=== PATIENT | male | born 1970 | race Caucasian/White ===

== ENCOUNTER 2017-01-13 19:50 | Emergency (ER) | payer OTHER ==
[~2017-01-13 19:50] MED LIST: CLEOCIN300 MG PO; CLINDAMYCIN HCL75 MG PO; IBUPROFEN400 MG PO
--- NOTE | 2017-01-13 21:29 | DIAGNOSTIC IMAGING REPORT ---
PROCEDURE: XR CHEST 1 VIEW INDICATION: CONGESTION TECHNIQUE: Single view chest. 2030 hours COMPARISON: 09/25/2015 FINDINGS: The cardiopulmonary contour and central vasculature are stable, within normal limits. The lungs are clear without focal consolidation, pleural effusion or pneumothorax. The osseous structures are intact. IMPRESSION: 1. No evidence of acute cardiopulmonary disease.
--- NOTE | 2017-01-13 22:55 | ED ORDER SUMMARY ---
..... Patient: STEPHANIE CARVALHO OrderSheet [facility] VisitID: [id number] [place] [address] 46y, M Registration Date/Time: 01/13/2017 ORDER SHEET Weight: 74.8 kg (stated) Allergies: No Known Drug Allergy GENERAL ORDERS: Chest 1V Urgent (20:17 01/13/2017 DDean R.N. per protocol) (Ack 20:22 CHagerty ER Vice President Of Recruiting) (20:31 RFay) Information Clerk Brokerage (Continuous) (feels short of breath) (20:17 01/13/2017 DDean R.N. per protocol) (20:17 DDean R.N.) Cardiac Panel Stat (20:17 01/13/2017 DDean R.N. per protocol) (Ack 20:22 CHagerty ER Vice President Of Recruiting) (20:24 NHouse ER Tech1) UA-Culture if indicated Urgent (20:17 01/13/2017 DDean R.N. per protocol) (Ack 20:22 CHagerty ER Vice President Of Recruiting) (21:43 HBivens A.R.N.P.) (Cancelled: Other21:44 HBivens A.R.N.P.) Oxygen (2 L/min) (NC) (20:17 01/13/2017 DDean R.N. per protocol) (20:17 DDean R.N.) Pulse oximeter (20:17 01/13/2017 DDean R.N. per protocol) (20:17 DDean R.N.) EKG - ER Stat (20:17 01/13/2017 DDean R.N. per protocol) (20:19 NHouse ER Tech1) CPK Urgent (21:43 01/13/2017 HBivens A.R.N.P.) (Ack 21:49 CHagerty ER Vice President Of Recruiting) (22:11 ALawrence ER Tech1) Troponin-I Urgent (21:43 01/13/2017 HBivens A.R.N.P.) (Ack 21:49 CHagerty ER Vice President Of Recruiting) (22:11 ALawrence ER Tech1) MEDICATION ORDERS: Aspirin PO 325 mg (NOW) (20:24 01/13/2017 HBivens A.R.N.P.) (20:39 DDean R.N.) IV FLUIDS: IV Saline Lock (20:17 01/13/2017 DDean R.N. per protocol) (20:18 DDean R.N.) ORDER SHEET NOTES: [Electronically signed by Marino Rivera R.N. (23:32 01/13/2017)] [Electronically signed by Mariah Amaya A.R.N.P. (13:08 01/14/2017)] [Electronically locked/signed by Marino Rivera R.N. (23:32 01/13/2017)]
--- NOTE | 2017-01-13 22:55 | ED CLINICAL REPORT ---
Clinical Report - Physicians/Mid Levels [facility] [address] [place] [address] 01/13/2017 19:50 Patient: STEPHANIE CARVALHO Time Seen: 20:14; initial patient contact, initial documentation, patient care assumed. Arrived- By private vehicle. Historian- patient. HISTORY OF PRESENT ILLNESS Chief Complaint: UPPER EXTREMITY PAIN. This started about 1 weeks ago and is still present. Severity is described as being moderate in degree. The quality is noted to be "pain". It is described as radiating to the left neck. Modifying factors. Not worsened by anything. Not made better by anything. Symptoms located in the area of the left arm. The patient has had difficulty breathing and chest pain but not had redness. No swelling, sensory loss, motor loss or repetitive hand use at work. Patient denies an injury. Similar symptoms previously: None. Recent medical care: Not recently seen/assessed. REVIEW OF SYSTEMS No fever or cough. All systems otherwise negative, except as recorded above. PAST HISTORY See nurses notes. PROBLEMS: Cellulitis. Chest Pain. Gastroesophageal Reflux Disease. Anxiety Reaction. Gastroesophageal Reflux. --20:01 Jhony Sotelo R.N. Hx of "liver problems". --20:07 Danna Paige R.N. ADDITIONAL SURGERIES: no known surgeries. SOCIAL HISTORY Heavy tobacco smoker. History of heavy drug use: methamphetamines. Recently used drugs days ago. Is not under influence in ED. No alcohol use. Is a local resident. FAMILY HISTORY History of heart disease (chf and cousin at age 45 with mi). ADDITIONAL NOTES The nursing notes have been reviewed with agreement regarding the chief complaint, HPI, ROS, PMH and patient medications and allergies. PHYSICAL EXAM Vital Signs: 01/13/2017 19:52 BP: 141/96. HR: 98. RR: 18. O2 saturation: 100%. Temp: 98.2 F. Pain level now: 5/10. Hypertensive. Heart rate normal. Respiratory rate normal. Temperature normal. Oxygen saturation normal. Appearance: Alert. Oriented X3. No acute distress. Eyes: Pupils equal, round and reactive to light. Eyes normal inspection. Neck: Normal inspection. Neck supple. CVS: Normal heart rate and rhythm. Heart sounds normal. Respiratory: No respiratory distress. Breath sounds normal. Abdomen: Soft and nontender. No organomegaly. Back: Normal inspection. No tenderness. ROM normal. Skin: Skin intact. Skin warm and dry. Normal skin color. Normal skin turgor. Extremities: Upper extremities normal to inspection. Upper extremities exhibit normal ROM. Upper extremities nontender. No upper extremity edema. Extremities otherwise negative. Neuro: Oriented X 3. No motor deficit. No sensory deficit. LABS, X-RAYS, AND EKG EKG: EKG time: (2003). No acute process. No acute ischemia. Normal EKG. Rate: 101. Regular narrow-complex tachycardia (ventricular rate 101). Sinus tachycardia. Normal EKG. The study has been interpreted contemporaneously. The EKG appears to be a good tracing. Interpretation time: 2004. Chest X-ray: Normal Chest X-Ray. (IMPRESSION: 1. No evidence of acute cardiopulmonary disease. Electronically Final signed by:Shauna Riley MD 01/13/2017 9:30:02 PM). The X-rays were interpreted by the radiologist and contemporaneously by me. Laboratory Tests: CBC w Diff: (LION: 01/13/2017 19:58) ( MsgRcvd 01/13/2017 20:33) Final results Test Result Flag Units (Reference) WHITE BLOOD COUNT 10.8 K/uL (4.5-11.5) RED BLOOD COUNT 4.55 M/uL (4.50-5.90) HEMOGLOBIN 14.4 gm/dL (13.5-17.5) HEMATOCRIT 42.7 % (41.0-53.0) MEAN CELL VOLUME 94 fL (80-100) MEAN CORPUSCULAR HGB 32 pg (26-34) MEAN CORPUSCULAR HGB CONC 34 g/dL (31-37) RED CELL DISTRIBUTION WIDTH 13.5 % (11.6-14.8) PLATELET COUNT 299 K/uL (150-400) NEUTROPHIL % 61.3 % (50-75) LYMPH % 25.1 % (25-40) MONO % 6.9 % (3-14) EOSINOPHIL % 6.0 H % (0-4) BASOPHIL % 0.7 % (0-2) CPK: (LION: 01/13/2017 21:00) ( [facility] 01/13/2017 22:38) Final results Test Result Flag Units (Reference) CPK 416 H U/L (24-260) TROPONIN I <0.05 ng/mL (0.00-1.5) TROPONIN REFERENCE RANGE:<0.1 NEGATIVE0.1-1.5 INDETERMINANT>1.5 POSITIVE %CKMB 1.0 % (0.0-4.0) CHEM 13 PANEL: (LION: 01/13/2017 20:17) ( [facility] 01/13/2017 21:33) Final results Test Result Flag Units (Reference) GLUCOSE 85 mg/dL (70-110) BUN 22 H mg/dL (7-18) CREATININE 1.0 mg/dL (0.6-1.3) Estimated GFR >60 mL/min Estimated GFR- >60 mL/min Note: Persistent reduction over 3 months in eGFR<60 mL/min/1.73 m2 defines CKD. Patients with eGFR values>=60 mL/min/1.73 m2 may also have CKD if evidence ofpersistent proteinuria. Additional information may be foundat www.kidney.org. SODIUM 142 mmol/L (136-145) POTASSIUM 3.9 mmol/L (3.5-5.1) CHLORIDE 106 mmol/L (98-107) CARBON DIOXIDE 26 mmol/L (21-32) CALCIUM 8.6 mg/dL (8.5-10.1) TOTAL PROTEIN 7.2 g/dL (6.4-8.2) ALBUMIN 3.7 g/dL (3.3-5.0) BILIRUBIN, TOTAL 0.3 mg/dL (0.0-1.0) ALKALINE PHOSPHATASE 111 U/L (46-116) AST (SGOT) 26 U/L (15-37) ALT (SGPT) 34 U/L (12-78) MAGNESIUM 1.8 mg/dL (1.8-2.4) CPK 453 H U/L (24-260) TROPONIN I <0.05 ng/mL (0.00-1.5) TROPONIN REFERENCE RANGE:<0.1 NEGATIVE0.1-1.5 INDETERMINANT>1.5 POSITIVE CK-MB 5.1 H ng/mL (0.5-3.2) %CKMB 1.1 % (0.0-4.0) . PROGRESS AND PROCEDURES Course of Care: 2249. pt's case and labs discussed with Dr Monreal, whom agreed with my dc plan 2254. importance of f/u tomorrow with pcp discussed. Patient and family counseled in person regarding the patient's stable condition, test results and diagnosis. 22:55. Differential Diagnosis: I considered muscle strain, costochondritis, myositis, pleurisy, myocardial infarction, intermediate coronary syndrome, unstable angina, angina, aortic dissection, mitral valve prolapse, pericarditis, palpitations, pulmonary embolism, pneumonia, gastroesophageal reflux disease, esophagitis and esophageal spasm as a possible cause of chest pain in this patient. This is a partial list of diagnoses considered. (substance abuse). Above considerations are based on history, physical exam, laboratory data, X-Ray data and EKG. Differential diagnosis was discussed with patient. Disposition: Discharged home in good and improved condition (22:55). Condition: good and stable. CLINICAL IMPRESSION Atypical chest pain .12 lead EKG performed. Chronic substance abuse- methamphetamines with intoxication. INSTRUCTIONS Warnings: Further evaluation is necessary in order to conduct further tests and assess the possibility of serious illness. It is very important to follow up with a physician. GENERAL WARNINGS: Return or contact your physician immediately if your condition worsens or changes unexpectedly, if not improving as expected, or if other problems arise. Specifically return if problem worsens. Follow-up: Follow up with your doctor tomorrow even if well. Call for an appointment. Summary of care provided to patient. Understanding of the discharge instructions verbalized by patient. (Electronically signed by Mariah Amaya A.R.N.P. 01/14/2017 13:08)
--- NOTE | 2017-01-13 22:55 | ED NURSING NOTES ---
Clinical Report - Nurses [facility] [address] [place] [address] 01/13/2017 19:50 Patient: STEPHANIE CARVALHO TRIAGE Triage time 1951. Acuity: LEVEL 3. Chief Complaint: (Pt states he has left arm pain, and neck pain x 1 week. Also states he doesn't feel like he is breathing well, but denies chest pain). 19:52. DIEGO COMA SCORE: [place] Coma Scale: 15- eyes open spontaneously (4); best verbal response- oriented x 4 (5); best motor response- obeys commands (6). --20:03 Dakota Sotelo R.N. 19:52 01/13/17. BP: 141/96. HR: 98. RR: 18. O2 saturation: 100% on room air. Temp: 98.2 F. Pain level now: 5/10. Additional comments: LEFT, PAIN in neck is 5/10 BP 128/84 on right arm . --20:03 Dakota Sotelo R.N. Weight: 74.8 kg stated. Height/Length: 67 inches Per Patient. BMI: 25.9. --19:59 Dakota Sotelo R.N. Medications Clindamycin HCl Oral. Ibuprofen Oral. --23:31 Marino Rivera R.N. Allergies No Known Drug Allergy. --23:31 Marino Rivera R.N. History Arrived by private vehicle. Historian: patient. Accompanied by sister. Primary physician (bucky). ( denies any speciific changes, states has had same symptoms x 1 week "Just tired of putting up with this-- and worried about heart since family has hx"). SURGERY HX: No history of previous surgery. SOCIAL HX: Heavy tobacco smoker (cigarette)- 1 pack per day. History of drug use: methamphetamines. (last used 2 days ago). No alcohol use. --20:03 Dakota Sotelo R.N. PROBLEMS: Cellulitis. Chest Pain. Gastroesophageal Reflux Disease. Anxiety Reaction. Gastroesophageal Reflux. --20:01 Dakota Sotelo R.N. Hx of "liver problems". --20:07 Danna Paige R.N. ADDITIONAL SURGERIES: no known surgeries. Interventions ID band on patient. To treatment room. --20:03 Dakota Sotelo R.N. PHYSICAL ASSESSMENT 19:52. Ambulatory to room. Patient gowned. GENERAL / NEURO / PSYCH: Alert. Oriented X 4. Appears anxious. HEENT: Mucous membranes are pink. RESPIRATORY: Mild respiratory distress. Chest wall tenderness. CVS: Capillary refill less than 2 seconds. GI / : Abdomen soft. SKIN: Skin is warm and dry. --20:06 Danna Paige R.N. NURSING PROGRESS NOTES 19:52. Oxygen administered. patient monitor placed on patient. Patient gowned. Head of bed elevated. Reassurance given. Patient identifiers checked. Call light placed in reach. Side rails up. Bed placed in lowest position. Patient ready for evaluation- chart flagged. --20:04 Danna Paige R.N. 19:55 01/13/2017 Site #1 started via IV in the right antecubital space with an 18g angiocath, with aseptic technique and good blood return; one attempt. Blood drawn: rainbow set. Labeled in the presence of the patient and sent to the lab. Saline lock flushed with 10 mL saline. --20:05 Danna Paige R.N. 20:00 01/13/17. BP: 134/94. HR: 101. RR: 20. O2 saturation: 99%. Temp: deferred. Pain level now: 4/10. Additional comments: sister at bedside. --20:08 Danna Paige R.N. EKG time: (2003). EKG was ordered, performed by a tech and shown to the ED physician. --20:12 Solange Lee ER Tech1 20:39 01/13/2017 Aspirin PO Tablets 324 mg given. Allergies verified and confirmed 5 rights. --20:39 Danna Paige R.N. 20:42 01/13/17. BP: 128/86. HR: 104. RR: 18. O2 saturation: 100%. Temp: deferred. Pain level now: 4/10. Additional comments: head and neck pain , family at bedside --waiting on lab results. --20:44 Danna Paige R.N. 21:15 01/13/17. BP: 124/83. HR: 104. RR: 20. O2 saturation: 98% on room air. Temp: deferred. Pain level now: cannot qualify. Additional comments: pt sleeping. --21:15 Danna Paige R.N. 21:55. Blood samples drawn. (repeat triponin and CPK drawn from IV site after 5cc wasted. Pt dozing when not stimulated, family at bedside.). --22:01 Danna Paige R.N. 22:20 01/13/17. BP: 122/70. HR: 100. RR: 18. O2 saturation: 99%. Temp: deferred. Pain level now: cannot qualify. Additional comments: sleeping. --22:29 Danna Paige R.N. 22:30 01/13/17. Care transferred and report given (dakota KASPER). --22:30 Danna Paige R.N. ( report from [facility]). --22:35 Raymond Cornell R.N. DISPOSITION / DISCHARGE Condition at departure: stable. FALL RISK ASSESSMENT: Fall risk assessment completed. No fall risk identified. --22:59 Dakota Sotelo R.N. 22:57 01/13/17. BP: 124/76. HR: 94. RR: 15. O2 saturation: 98%. Pain level now: 0/10. --22:59 Dakota Sotelo R.N. Departure time: 2316. The goals identified in the patient's plan of care were met. No learning barriers present. Discharge instructions provided and reviewed with the patient. Reviewed referral to a primary care physician for followup (Gave [facility] flyer for f/u. Stephanie verbalizes importance of f/u and establishing PCP.). Reviewed need for increased fluid intake. Activity restrictions (rest) reviewed. Patient verbalized understanding. Written instructions provided in Maldivian. ( Stephanie verbalizes understanding of all d/c instructions including need to f/u with PCP. He verbalizes desire to stop meth and verbalized the PCP can help begin that journey. Encouraged him to increase fluids. He has no questions and voices no concerns at this time.). The patient was discharged by the nurse practitioner. He was discharged home and accompanied by family. He left the Emergency Department ambulatory and via private vehicle. Family member driving. DIEGO COMA SCORE: [place] Coma Scale: 15- eyes open spontaneously (4); best verbal response- oriented x 4 (5); best motor response- obeys commands (6). --23:31 Marino Rivera R.N. Locked/Released at 01/13/2017 23:32 by Marino Rivera R.N.
--- NOTE | 2017-01-13 22:55 | ED NURSING NOTES ---
Clinical Report - Nurses [facility] [address] [place] [address] 01/13/2017 19:50 Patient: STEPHANIE CARVALHO TRIAGE Triage time 1949. Acuity: LEVEL 3. Chief Complaint: (Pt states he has left arm pain, and neck pain x 1 week. Also states he doesn't feel like he is breathing well, but denies chest pain). 19:52. DIEGO COMA SCORE: [place] Coma Scale: 15- eyes open spontaneously (4); best verbal response- oriented x 4 (5); best motor response- obeys commands (6). --20:03 Dakota Sotelo R.N. 19:52 01/13/17. BP: 141/96. HR: 98. RR: 18. O2 saturation: 100% on room air. Temp: 98.2 F. Pain level now: 5/10. Additional comments: LEFT, PAIN in neck is 5/10 BP 128/84 on right arm . --20:03 Dakota Sotelo R.N. Weight: 74.8 kg stated. Height/Length: 67 inches Per Patient. BMI: 25.9. --19:59 Dakota Sotelo R.N. Medications Clindamycin HCl Oral. Ibuprofen Oral. --23:31 Marino Rivera R.N. Allergies No Known Drug Allergy. --23:31 Marino Rivera R.N. History Arrived by private vehicle. Historian: patient. Accompanied by sister. Primary physician (bucky). ( denies any speciific changes, states has had same symptoms x 1 week "Just tired of putting up with this-- and worried about heart since family has hx"). SURGERY HX: No history of previous surgery. SOCIAL HX: Heavy tobacco smoker (cigarette)- 1 pack per day. History of drug use: methamphetamines. (last used 2 days ago). No alcohol use. --20:03 Dakota Sotelo R.N. PROBLEMS: Cellulitis. Chest Pain. Gastroesophageal Reflux Disease. Anxiety Reaction. Gastroesophageal Reflux. --20:01 Dakota Sotelo R.N. Hx of "liver problems". --20:07 Danna Paige R.N. ADDITIONAL SURGERIES: no known surgeries. Interventions ID band on patient. To treatment room. --20:03 Dakota Sotelo R.N. PHYSICAL ASSESSMENT 19:52. Ambulatory to room. Patient gowned. GENERAL / NEURO / PSYCH: Alert. Oriented X 4. Appears anxious. HEENT: Mucous membranes are pink. RESPIRATORY: Mild respiratory distress. Chest wall tenderness. CVS: Capillary refill less than 2 seconds. GI / : Abdomen soft. SKIN: Skin is warm and dry. --20:06 Danna Paige R.N. NURSING PROGRESS NOTES 19:52. Oxygen administered. environmental monitoring specialist placed on patient. Patient gowned. Head of bed elevated. Reassurance given. Patient identifiers checked. Call light placed in reach. Side rails up. Bed placed in lowest position. Patient ready for evaluation- chart flagged. --20:04 Danna Paige R.N. 19:55 01/13/2017 Site #1 started via IV in the right antecubital space with an 18g angiocath, with aseptic technique and good blood return; one attempt. Blood drawn: rainbow set. Labeled in the presence of the patient and sent to the lab. Saline lock flushed with 10 mL saline. --20:05 Danna Paige R.N. 20:00 01/13/17. BP: 134/94. HR: 101. RR: 20. O2 saturation: 99%. Temp: deferred. Pain level now: 4/10. Additional comments: sister at bedside. --20:08 Danna Paige R.N. EKG time: (2003). EKG was ordered, performed by a tech and shown to the ED physician. --20:12 Solange Lee ER Tech1 20:39 01/13/2017 Aspirin PO Tablets 324 mg given. Allergies verified and confirmed 5 rights. --20:39 Danna Paige R.N. 20:42 01/13/17. BP: 128/86. HR: 104. RR: 18. O2 saturation: 100%. Temp: deferred. Pain level now: 4/10. Additional comments: head and neck pain , family at bedside --waiting on lab results. --20:44 Danna Paige R.N. 21:15 01/13/17. BP: 124/83. HR: 104. RR: 20. O2 saturation: 98% on room air. Temp: deferred. Pain level now: cannot qualify. Additional comments: pt sleeping. --21:15 Danna Paige R.N. 21:55. Blood samples drawn. (repeat triponin and CPK drawn from IV site after 5cc wasted. Pt dozing when not stimulated, family at bedside.). --22:01 Danna Paige R.N. 22:20 01/13/17. BP: 122/70. HR: 100. RR: 18. O2 saturation: 99%. Temp: deferred. Pain level now: cannot qualify. Additional comments: sleeping. --22:29 Danna Paige R.N. 22:30 01/13/17. Care transferred and report given (dakota KASPER). --22:30 Danna Paige R.N. ( report from [facility]). --22:35 Raymond Cornell R.N. DISPOSITION / DISCHARGE Condition at departure: stable. FALL RISK ASSESSMENT: Fall risk assessment completed. No fall risk identified. --22:59 Dakota Sotelo R.N. 22:57 01/13/17. BP: 124/76. HR: 94. RR: 15. O2 saturation: 98%. Pain level now: 0/10. --22:59 Dakota Sotelo R.N. Departure time: 2316. The goals identified in the patient's plan of care were met. No learning barriers present. Discharge instructions provided and reviewed with the patient. Reviewed referral to a primary care physician for followup (Gave [facility] flyer for f/u. Stephanie verbalizes importance of f/u and establishing PCP.). Reviewed need for increased fluid intake. Activity restrictions (rest) reviewed. Patient verbalized understanding. Written instructions provided in Lithuanian. ( Stephanie verbalizes understanding of all d/c instructions including need to f/u with PCP. He verbalizes desire to stop meth and verbalized the PCP can help begin that journey. Encouraged him to increase fluids. He has no questions and voices no concerns at this time.). The patient was discharged by the nurse practitioner. He was discharged home and accompanied by family. He left the Emergency Department ambulatory and via private vehicle. Family member driving. DIEGO COMA SCORE: [place] Coma Scale: 15- eyes open spontaneously (4); best verbal response- oriented x 4 (5); best motor response- obeys commands (6). --23:31 Marino Rivera R.N. Locked/Released at 01/13/2017 23:32 by Marino Rivera R.N.
--- NOTE | 2017-01-13 22:55 | ED ORDER SUMMARY ---
..... Patient: STEPHANIE CARVALHO OrderSheet [facility] VisitID: [id number] [place] [address] 46y, M Registration Date/Time: 01/13/2017 ORDER SHEET Weight: 74.8 kg (stated) Allergies: No Known Drug Allergy GENERAL ORDERS: Chest 1V Urgent (20:17 01/13/2017 DDean R.N. per protocol) (Ack 20:22 CHagerty ER Aerospace Stress Engineer) (20:31 RFay) Breakfast Supervisor (Continuous) (feels short of breath) (20:17 01/13/2017 DDean R.N. per protocol) (20:17 DDean R.N.) Cardiac Panel Stat (20:17 01/13/2017 DDean R.N. per protocol) (Ack 20:22 CHagerty ER Aerospace Stress Engineer) (20:24 NHouse ER Tech1) UA-Culture if indicated Urgent (20:17 01/13/2017 DDean R.N. per protocol) (Ack 20:22 CHagerty ER Aerospace Stress Engineer) (21:43 HBivens A.R.N.P.) (Cancelled: Other21:44 HBivens A.R.N.P.) Oxygen (2 L/min) (NC) (20:17 01/13/2017 DDean R.N. per protocol) (20:17 DDean R.N.) Pulse oximeter (20:17 01/13/2017 DDean R.N. per protocol) (20:17 DDean R.N.) EKG - ER Stat (20:17 01/13/2017 DDean R.N. per protocol) (20:19 NHouse ER Tech1) CPK Urgent (21:43 01/13/2017 HBivens A.R.N.P.) (Ack 21:49 CHagerty ER Aerospace Stress Engineer) (22:11 ALawrence ER Tech1) Troponin-I Urgent (21:43 01/13/2017 HBivens A.R.N.P.) (Ack 21:49 CHagerty ER Aerospace Stress Engineer) (22:11 ALawrence ER Tech1) MEDICATION ORDERS: Aspirin PO 325 mg (NOW) (20:24 01/13/2017 HBivens A.R.N.P.) (20:39 DDean R.N.) IV FLUIDS: IV Saline Lock (20:17 01/13/2017 DDean R.N. per protocol) (20:18 DDean R.N.) ORDER SHEET NOTES: [Electronically signed by Marino Rivera R.N. (23:32 01/13/2017)] [Electronically signed by Mariah Amaya A.R.N.P. (13:08 01/14/2017)] [Electronically locked/signed by Marino Rivera R.N. (23:32 01/13/2017)]
--- NOTE | 2017-01-14 13:09 | ED MED RECONCILIATION SUMMARY ---
Patient: STEPHANIE CARVALHO Medication Reconciliation Report [facility] VisitID: [id number] [address] [place] [place] [address] 46y, M Registration Date/Time: 01/13/2017 Weight: 74.8 kg Height/Length: 67 in. BMI: 25.9 ALLERGIES: No Known Drug Allergy The patient's Home Medications are listed below: THE FOLLOWING MEDICATIONS NEED TO BE RECONCILED: Clindamycin HCl Oral Ibuprofen Oral The source(s) of the original Home Medication information: Not obtained. The following Medications were given to the patient in the Emergency Department: Aspirin [PO] PO 324 mg, administered: 01/13/2017 8:39:00 PM The following Medications were prescribed to the patient: None.
--- NOTE | 2017-01-14 13:09 | ED MAR SUMMARY ---
..... Medication Administration Record [facility] [address] [place] [address] Patient: STEPHANIE CARVALHO Visit ID: [id number] 46y, M Weight: 74.8 kg Height/Length: 67 in BMI: 25.9 ALLERGIES: No Known Drug Allergy Given 20:39 01/13/2017 RoyalDanna R.N. Medication Administered: ASPIRIN [PO], Dose: 324 mg Tablets PO. Medication Ordered: Aspirin PO 325 mg (NOW).
--- NOTE | 2017-01-14 13:09 | ED DISCHARGE INSTRUCTIONS ---
Patient: STEPHANIE CARVALHO General Instructions [facility] VisitID: [id number] [place] [address] 46y, M Registration Date/Time: 01/13/2017 Atypical chest pain .12 lead EKG performed. Chronic substance abuse- methamphetamines with intoxication. INSTRUCTIONS Warnings: Further evaluation is necessary in order to conduct further tests and assess the possibility of serious illness. It is very important to follow up with a physician. GENERAL WARNINGS: Return or contact your physician immediately if your condition worsens or changes unexpectedly, if not improving as expected, or if other problems arise. Specifically return if problem worsens. Follow-up: Follow up with your doctor tomorrow even if well. Call for an appointment. Summary of care provided to patient. Understanding of the discharge instructions verbalized by patient. ADDITIONAL INFORMATION Chest Pain, Uncertain Cause Chest pain can happen for a number of reasons. Sometimes the cause can not be determined. If yourcondition does not seem serious, and your pain does not appear to be coming from your heart, your doctor may recommend watching it closely. Sometimes the signs of a serious problem take more time to appear. Therefore, watch for the warning signs listed below. Home care After your visit, follow these recommendations: Rest today and avoid strenuous activity. Take any prescribed medicine as directed. Follow-up care Follow up with your doctor or this facility as instructed or if you do not start to feel better within 24 hours. Call 911 Get immediate medical attention if any of the following occur: A change in the type of pain: if it feels different, becomes more severe, lasts longer, or begins to spread into your shoulder, arm, neck, jaw or back Shortness of breath or increased pain with breathing Weakness, dizziness, or fainting Rapid heart beat Get prompt medical attention Call your doctor right away if any of the following occur: Cough with dark colored sputum (phlegm) or blood Fever of 100.4F(38C) or higher, or as directed by your health care provider Swelling, pain or redness in one leg Drug Abuse Use and abuse of such drugs as marijuana, amphetamines (speed, crank), cocaine, heroin or prescription pain medicines (Vicodin, codeine), sedatives and sleeping pills (Valium, Klonopin), PCP, mescaline and LSD may lead to addiction or dependence. Once this occurs, you are at greater risk for any of the following: Craving for the drug and unable to stop using the drug even though you think you want to stop (psychological dependence) Drug withdrawal symptoms if you stop taking the drug (physical dependence) Loss of your job or your family Arrest, conviction and [place]p sentence for possession of an illegal substance or for driving under the influence of such a substance Accidental injuries to yourself or others while you are under the influence of the drug (in a car or at home). HIV infection (much greater risk if you use IV drugs) Other sexually transmitted diseases (herpes, chlamydia, gonorrhea and others) Severe and fatal infection of the heart valves (if you use IV drugs) Stroke, heart attack, hepatitis B or C, kidney failure from overdose Home Care: Admit you have a drug problem. Ask for help from your family and close friends. Seek professional help. This could be in the form of individual psychotherapy or counseling or an outpatient, inpatient, or residential drug treatment program. Join a self-help group for drug abuse. Avoid friends who abuse drugs themselves or tempt you to continue abusing drugs. Eat a balanced diet and begin a regular exercise program. Follow Up with your doctor or as advised by our staff. Contact one of the resources below for help. National [place] on Alcoholism and Drug Dependence www.ncadd.org 617-879-VEMH Narcotics Anonymous www.na.org 543-130-9858 National Alcohol and Substance Abuse Information Center (for referral to treatment programs) www.addictioncareClubJumpr.com.Cloudant 267-307-9073 Get Prompt Medical Attention if any of the following occur: Agitation, anxiety, unable to sleep Unintended weight loss (more than 10 to 15 pounds over 3 months) Seizure Chest pain Fever of 100.4F (38C) or higher, or as directed by your healthcare provider Excess drowsiness or inability to be awakened Shortness of breath Slow breathing under 8 breaths per minute Cough with colored sputum Redness, swelling or tenderness at an injection site You have been given the following additional information: Chest Pain, Uncertain Cause Drug Abuse (Electronically signed by Mariah Amaya A.R.N.P. 01/14/2017 13:08)
--- NOTE | 2017-01-14 13:09 | ED MAR SUMMARY ---
..... Medication Administration Record [facility] [address] [place] [address] Patient: STEPHANIE CARVALHO Visit ID: [id number] 46y, M Weight: 74.8 kg Height/Length: 67 in BMI: 25.9 ALLERGIES: No Known Drug Allergy Given 20:39 01/13/2017 RoyalDanna R.N. Medication Administered: ASPIRIN [PO], Dose: 324 mg Tablets PO. Medication Ordered: Aspirin PO 325 mg (NOW).
--- NOTE | 2017-01-14 13:09 | ED MED RECONCILIATION SUMMARY ---
Patient: STEPHANIE CARVALHO Medication Reconciliation Report [facility] VisitID: [id number] [address] [place] [address] 46y, M Registration Date/Time: 01/13/2017 Weight: 74.8 kg Height/Length: 67 in. BMI: 25.9 ALLERGIES: No Known Drug Allergy The patient's Home Medications are listed below: THE FOLLOWING MEDICATIONS NEED TO BE RECONCILED: Clindamycin HCl Oral Ibuprofen Oral The source(s) of the original Home Medication information: Not obtained. The following Medications were given to the patient in the Emergency Department: Aspirin [PO] PO 324 mg, administered: 01/13/2017 8:39:00 PM The following Medications were prescribed to the patient: None.
--- NOTE | 2017-01-14 13:09 | ED DISCHARGE INSTRUCTIONS ---
Patient: STEPHANIE CARVALHO General Instructions [facility] VisitID: [id number] [place] [address] 46y, M Registration Date/Time: 01/13/2017 Atypical chest pain .12 lead EKG performed. Chronic substance abuse- methamphetamines with intoxication. INSTRUCTIONS Warnings: Further evaluation is necessary in order to conduct further tests and assess the possibility of serious illness. It is very important to follow up with a physician. GENERAL WARNINGS: Return or contact your physician immediately if your condition worsens or changes unexpectedly, if not improving as expected, or if other problems arise. Specifically return if problem worsens. Follow-up: Follow up with your doctor tomorrow even if well. Call for an appointment. Summary of care provided to patient. Understanding of the discharge instructions verbalized by patient. ADDITIONAL INFORMATION Chest Pain, Uncertain Cause Chest pain can happen for a number of reasons. Sometimes the cause can not be determined. If yourcondition does not seem serious, and your pain does not appear to be coming from your heart, your doctor may recommend watching it closely. Sometimes the signs of a serious problem take more time to appear. Therefore, watch for the warning signs listed below. Home care After your visit, follow these recommendations: Rest today and avoid strenuous activity. Take any prescribed medicine as directed. Follow-up care Follow up with your doctor or this facility as instructed or if you do not start to feel better within 24 hours. Call 911 Get immediate medical attention if any of the following occur: A change in the type of pain: if it feels different, becomes more severe, lasts longer, or begins to spread into your shoulder, arm, neck, jaw or back Shortness of breath or increased pain with breathing Weakness, dizziness, or fainting Rapid heart beat Get prompt medical attention Call your doctor right away if any of the following occur: Cough with dark colored sputum (phlegm) or blood Fever of 100.4F(38C) or higher, or as directed by your health care provider Swelling, pain or redness in one leg Drug Abuse Use and abuse of such drugs as marijuana, amphetamines (speed, crank), cocaine, heroin or prescription pain medicines (Vicodin, codeine), sedatives and sleeping pills (Valium, Klonopin), PCP, mescaline and LSD may lead to addiction or dependence. Once this occurs, you are at greater risk for any of the following: Craving for the drug and unable to stop using the drug even though you think you want to stop (psychological dependence) Drug withdrawal symptoms if you stop taking the drug (physical dependence) Loss of your job or your family Arrest, conviction and retirement sentence for possession of an illegal substance or for driving under the influence of such a substance Accidental injuries to yourself or others while you are under the influence of the drug (in a car or at home). HIV infection (much greater risk if you use IV drugs) Other sexually transmitted diseases (herpes, chlamydia, gonorrhea and others) Severe and fatal infection of the heart valves (if you use IV drugs) Stroke, heart attack, hepatitis B or C, kidney failure from overdose Home Care: Admit you have a drug problem. Ask for help from your family and close friends. Seek professional help. This could be in the form of individual psychotherapy or counseling or an outpatient, inpatient, or residential drug treatment program. Join a self-help group for drug abuse. Avoid friends who abuse drugs themselves or tempt you to continue abusing drugs. Eat a balanced diet and begin a regular exercise program. Follow Up with your doctor or as advised by our staff. Contact one of the resources below for help. National [place] on Alcoholism and Drug Dependence www.ncadd.org 645-579-SLGZ Narcotics Anonymous www.na.org 348-746-6876 National Alcohol and Substance Abuse Information Center (for referral to treatment programs) www.addictioncareDealCloud.InsightETE 592-020-6434 Get Prompt Medical Attention if any of the following occur: Agitation, anxiety, unable to sleep Unintended weight loss (more than 10 to 15 pounds over 3 months) Seizure Chest pain Fever of 100.4F (38C) or higher, or as directed by your healthcare provider Excess drowsiness or inability to be awakened Shortness of breath Slow breathing under 8 breaths per minute Cough with colored sputum Redness, swelling or tenderness at an injection site You have been given the following additional information: Chest Pain, Uncertain Cause Drug Abuse (Electronically signed by Mariah Amaya A.R.N.P. 01/14/2017 13:08)
== END 2017-01-13 23:17 | disposition home or self-care (01) ==
LOC: ED SRH 19:50
DX: R07.89 Other chest pain (principal); F15.129 Other stimulant abuse with intoxication, unspecified; F17.210 Nicotine dependence, cigarettes, uncomplicated
CPT/HCPCS: 90074; 90100; 90616; 90617; 92610; 92720; 95059